=== PATIENT | female | born 1990 | race Hispanic/Latino ===

== ENCOUNTER 2016-09-05 17:17 | Emergency (ER) | payer OTHER ==
[~2016-09-05] VITALS: Ht 142.2 cm; Wt 43.1 kg
[~2016-09-05 17:17] MED LIST: DIFLUCAN150 MG PO; NAPROXEN500 MG PO; OMEPRAZOLE D/R20 MG PO; ZOFRAN4 M1 PO
--- NOTE | 2016-09-05 19:03 | ED GENERAL ADULT ---
History of Present Illness General Chief Complaint: NAUSEA/VOMITING UPPER ABDOMINAL PAIN Stated Complaint: +N +V AND RIB PAIN Source: patient Exam Limitations: no limitations Allergies Coded Allergies: codeine (Severe, N/V 10/08/15) Reconcile Medications Ketorolac Tromethamine 10 MG TABLET 1 TAB PO Q6P PRN pain Naproxen 500 MG TAB 1 TAB PO BID PAIN Omeprazole 20 MG ECC 1 CAP PO DAILY GERD Triage Note: 25 Y/O FEMALE C/O BILATERAL RIB PAIN. ALSO C/O N/V/D AND HEADACHE S/P FALL 1 YEAR AGO. ADVISED TO REMAIN NPO UNTIL EVAL. Triage Nurses Notes Reviewed? yes Onset: FOR TWO MONTHS OFF AND ON Duration: intermittent, waxing and waning Timing: TENDER WITH TOUCH BUT CURRENTLY NO PAIN Injury Environment: NO HISTORY OF TRAUMA Severity: CURRENTLY NO PAIN, TENDERNESS OVER THE RIBS ON THE RIGHT AND LEFT SIDES : No Patient currently breastfeeds: No HPI: Patient is a 25 year old lady who came to the ED due to tenderness over the lower ribs on both sides that has been coming and going for about two months, feels like 'as if somebody punched her there'. Denies any history of trauma. Patient complains of nausea and reports vomiting two times once this evening and once about two weeks ago, also states two episodes of dysphagia with liquids ( not solids) that happened twice over the past two weeks. She decided to come to the ED for evaluation of her chronic pain and discomfort. She does not regularly follow up with a PCP and has not seen a doctor for the pain. Patient has occasional pain in her stomach as well for which she takes antiacids. Also complains of headaches and takes Tylenol occasionally, currently reprots pain on the right and tempral sides. It is noteworthy that she recently noticed some bruising (thinks it is more than usual) on the lower extremities. (JEFF HART,[facility]) Vital Signs & Intake/Output Vital Signs & Intake/Output Vital Signs Date Time Temp Pulse Resp B/P Pulse O2 O2 Flow FiO2 Ox Delivery Rate 09/06 0114 97.8 70 16 106/73 100 Room Air 09/05 2342 98.0 78 18 109/61 100 Room Air 09/05 2058 Room Air 09/05 2029 97.4 68 16 113/65 100 Room Air ED Intake and Output 01/25 0000 09/05 1200 Intake Total Output Total Balance Patient 43.091 kg Weight Past History Travel History Traveled to [place] past 21 day No Medical History Any Pertinent Medical History? 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 No Sexual History Sexually Active Yes # of partners 1 (YARITZA AGUILAR MD) Review of Systems Review of Systems Constitutional: Denies: chills, diaphoresis, fever, malaise, weakness, unexplained weight loss. EENTM: Denies: blurred vision, visual changes, hearing changes. Respiratory: Denies: cough, hemoptysis, orthopnea, short of breath, sputum production, stridor, wheezing. Cardiovascular: Denies: chest pain, edema, orthopena, palpitations, peripheral edema, syncope. GI: Reports: abdominal pain, nausea (loose stool one time), changes in stool, vomiting. Denies: bloating, constipation, diarrhea, distention, bowel incontinence. Genitourinary: Denies: discharge, dysuria, frequency, hematuria, hesitation, nocturia, pain, urgency. Musculoskeletal: Denies: back pain, joint pain, joint swelling, muscle pain. Skin: Denies: change in skin color, change in hair/nails, lesions (reports a few bruises on LE). Neurological/Psychological: Reports: headache. Denies: anxiety, numbness, weakness. Hematologic/Endocrine: Reports: bruising. Denies: bleeding, polyuria, polydipsia. (YARITZA AGUILAR MD) Physical Exam Physical Exam General Appearance: well developed/nourished, no apparent distress, alert, awake , comfortable Head: atraumatic, normal appearance Eyes: Bilateral: normal appearance, PERRL, EOMI. Ears, Nose, Throat: normal pharynx, normal ENT inspection, hearing grossly normal Neck: normal inspection, supple, full range of motion Respiratory: normal breath sounds, chest non-tender, no respiratory distress, quiet respiration, lungs clear Cardiovascular: regular rate/rhythm Peripheral Pulses: 2+ radial (R), 2+ radial (L), 2+ dorsalis pedis (R), 2+ dorsalis pedis (L) Gastrointestinal: normal bowel sounds, soft, tenderness on deep palpation on right and left upper quadrants Back: normal inspection, normal range of motion Extremities: normal inspection, normal capillary refill, normal range of motion, no edema Neurologic/Psych: no motor/sensory deficits, awake, alert, oriented x 3, normal gait Core Measures ACS in differential dx? No CVA/TIA Diagnosis: No Severe Sepsis Present: No Septic Shock Present: No (YARITZA AGUILAR MD) Progress Differential Diagnoses I considered the following diagnoses in my evaluation of the patient: [ , cholecystitis, gastritis, pancreatitis] Diagnostic Imaging: Viewed by Me: CT Scan. Radiology Impression: no acute abnormality Initial ED EKG: none (YARITZA AGUILAR MD) Differential Diagnoses I considered the following diagnoses in my evaluation of the patient: Plan of Care: Orders Procedure Date/time Status URINALYSIS 09/05 2007 Complete LIPASE 09/05 2007 Complete HUMAN BETA HCG SCREEN 09/05 2007 Complete COMPREHENSIVE METABOLIC PANEL 09/05 2007 Complete CBC WITHOUT DIFFERENTIAL 09/05 2007 Complete Laboratory Tests 09/05/162034: Anion Gap 8, Estimated GFR > 60, BUN/Creatinine Ratio 14.3, Glucose 85, Calcium 9.3, Total Bilirubin 1.0, AST 22, ALT 30, Alkaline Phosphatase 68, Total Protein 7.2, Albumin 4.4, Globulin 2.8, Albumin/Globulin Ratio 1.6, Lipase 97, Total Beta HCG NEGATIVE, CBC w Diff NO MAN DIFF REQ, RBC 4.35, MCV 91.5, MCH 30.4, RDW 13.1, MPV 8.4, Gran % 54.5, Lymphocytes % 33.8, Monocytes % 6.0, Eosinophils % 4.8, Basophils % 0.9, Absolute Granulocytes 4.8, Absolute Lymphocytes 3.0, Absolute Monocytes 0.5, Absolute Eosinophils 0.4, Absolute Basophils 0.1, PUBS MCHC 33.2, Urine Color YEL, Urine Clarity HAZY H, Urine pH 7.0, Ur Specific [place] 1.020, Urine Protein NEG, Urine Ketones NEG, Urine Nitrite NEG, Urine Bilirubin NEG, Urine Urobilinogen 0.2, Ur Leukocyte Esterase TRACE H, Ur Microscopic SEDIMENT EXAMINED, Urine RBC 3-5, Urine WBC 5-10 H, Ur Epithelial Cells MOD H, Urine Mucus MOD H, Urine Hemoglobin NEG, Urine Glucose NEG Comments: 09/05/2016 11:12:03 PM I have updated TATY on her test results. She has declined any additional pain medication or nausea medicine at this time. I have notified her we are attempting to contact surgeon regarding this gallstone in the neck of her gallbladder. Patient evaluated by the surgical service and considered stable for outpatient management. (ARSEN HART,JOSEE Galvan) Departure Departure Disposition: HOME OR SELF CARE Condition: Stable Additional Instructions: please: 1. Follow up with Dr. Reyes, general surgeon, within a week of discharge 2. Come back to the ED if symptoms persist or worsen Departure Forms: Customer Survey General Discharge Information Prescriptions: Current Visit Scripts Ketorolac Tromethamine 1 TAB PO Q6P PRN pain #20 TAB (JEFF HART,[facility]) Departure Clinical Impression Primary Impression: Cholelithiasis Qualifiers: Cholelithiasis location: gallbladder Cholecystitis presence: without cholecystitis Biliary obstruction: without biliary obstruction Qualified Code: K80.20 - Calculus of gallbladder without cholecystitis without obstruction Ruled Out Impressions: Referrals: LUMA HART,[facility] Resident Co-Sign Statement Statement: ED Attending supervision documentation- [X] I saw and evaluated the patient. I have also reviewed all the pertinent lab results and diagnostic results. I agree with the findings and the plan of care as documented in the Resident's documentation. [] I have reviewed the ED Record and agree with the Resident's documentation. [] Additions or exceptions (if any) to the Resident's note and plan are summarized below: [] (ARSEN HART,JOSEE Galvan) Critical Care Note Critical Care Note Critical Care Time: 30-74 min (JOSEE LEGER MD) ED Attending Observation Initial Observation Note: I have seen and personally examined DENNIS OBRIEN on 09/06/16 at 0051. I agree with the current emergency department documentation. The disposition (admission or discharge) is uncertain at this time, she needs a period of observation for the following reason(s): The ED Nurse caring for this patient has been personally informed as to what the patient is being observed for. (YARITZA AGUILAR MD) (YARITZA AGUILAR MD)
[2016-09-05 20:42] LABS: ABSOLUTE BASOPHIL COUNT 0.1 /CUMM (0.0-0.2); ABSOLUTE EOSINOPHIL COUNT 0.4 /CUMM (0.0-0.7); ABSOLUTE GRANULOCYTE CT 4.8 /CUMM (1.4-6.5); ABSOLUTE MONOCYTE COUNT 0.5 /CUMM (0.10-0.60); BASOPHIL % 0.9 % (0.0-2.0); EOSINOPHIL % 4.8 % (0-5); GRANULOCYTE % 54.5 % (42.2-75.2); HEMATOCRIT 39.8 % (37-47); MEAN CORPUSCULAR HGB 30.4 PG (27.0-31.0); MEAN CORPUSCULAR HGB CONC 33.2 G/DL (33.0-37.0); MEAN CORPUSCULAR VOLUME 91.5 FL (81.0-99.0); MEAN PLATELET VOLUME 8.4 FL (7.4-10.4); PLATELET COUNT 228 /CUMM (130-400); RBC DISTRIBUTION WIDTH 13.1 % (11.5-14.5); RED BLOOD CELL CT 4.35 /CUMM (4.20-5.40); WHITE BLOOD CELL COUNT 8.8 /CUMM (4.8-10.8)
--- NOTE | 2016-09-05 22:11 | CT SCAN REPORT ---
EXAMINATION: CT ABDOMEN AND PELVIS WITH CONTRAST CLINICAL INFORMATION: Upper abdominal pain and nausea. COMPARISON: None. TECHNIQUE: Multidetector volumetric imaging was performed of the abdomen and pelvis before and after the IV administration of 80 mL of Optiray 320 intravenous contrast. Sagittal and coronal reformatted images were obtained on the technologist's workstation. DLP: 212 mGy-cm. FINDINGS: LUNG BASES: The visualized lung bases are unremarkable. LIVER, GALLBLADDER, AND BILIARY TREE: The liver is normal in size, shape, and attenuation. No focal hepatic lesion or biliary ductal dilatation is present. The gallbladder is mildly contracted. Of note, there is a 4 mm stone within the gallbladder neck. There are no secondary signs of acute cholecystitis. However, please note that ultrasound is more sensitive in evaluating for secondary signs of acute cholecystitis. PANCREAS: Unremarkable. SPLEEN: Unremarkable. ADRENAL GLANDS: Unremarkable. KIDNEYS AND URETERS: The kidneys are normal in size and enhance homogeneously, without focal lesions. There is no appreciable nephrolithiasis or hydroureteronephrosis of either kidney or renal collecting system. No ureteral stones are identified. BLADDER: Unremarkable. GASTROINTESTINAL TRACT: Normal anatomic orientation of the stomach relative to the duodenum. Normal caliber of abdominal and pelvic bowel loops, without evidence of obstruction or ileus. No circumferential bowel wall thickening with surrounding inflammatory changes to suggest an underlying infectious or inflammatory enterocolitis. Normal-appearing appendix within the right lower quadrant of the abdomen. No organizing intra-abdominal fluid collections or free intraperitoneal air. ABDOMINAL WALL: No significant hernia is appreciated. LYMPH NODES: No significant abdominal or pelvic adenopathy. VASCULAR: Patent abdominal vasculature. Normal course and caliber of the abdominal aorta and its branching vessels, without aneurysmal dilatation. PELVIC VISCERA: There is a rim-enhancing structure within the right ovary, favored to represent a crenulated corpus luteal cyst. There is minimal free pelvic fluid. The uterus is retroverted. OSSEOUS STRUCTURES: No acute osseous abnormality. Normal alignment of the imaged thoracolumbar spine. IMPRESSION: Cholelithiasis, with a 4 mm stone visualized in the region of the gallbladder neck. No visible secondary signs of acute cholecystitis. However, please note that right upper quadrant abdominal ultrasound is more sensitive in evaluating for secondary signs of acute cholecystitis. Consider correlation with abdominal ultrasound.
[2016-09-06] MEDS ORDERED: KETOROLAC TROME10 M1 PO (00:46)
--- NOTE | 2016-09-06 01:06 | Cons- General Surgery ---
ASIF BASILIO 09/06/16 0049: General Information and HPI Consulting Request Date of Consult: 09/06/16 Requested By: Dr. Lucas Reason for Consult: Abdominal pain, gallstone on CT abd Source of Information: patient, old records Exam Limitations: no limitations History of Present Illness: Patient is a 25yo F whom presented to [facility] ED with c/o abdominal pain with n/ v. Per patient her pain started a couple of months ago and comes and goes. She also has nausea associated with her pain. Her pain became more severe on her left flank this morning and she had 1 episode of emesis. She says it feels as if its under her ribs while pointing to her lateral left flank. Pain radiates around to the back. She states she has 'a little' discomfort in her right upper quadrant. She has been passing flatus and bowel habits have been normal. Denies fever or recent illnesses. Voiding without difficulty, denies dysuria. Denies any trauma or sports that could have caused the pain. 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 Cardiovascular: Denies: chest pain, palpitations. Respiratory: Denies: cough, short of breath. GI: Reports: see HPI. Genitourinary: Denies: dysuria, frequency, hematuria. Musculoskeletal: Reports: no symptoms. Skin: Reports: no symptoms. All Other Systems: Reviewed and Negative Exam & Diagnostic Data Vital Signs and I&O Vital Signs Date Time Temp Pulse Resp B/P Pulse O2 O2 Flow FiO2 Ox Delivery Rate 09/05 2342 98.0 78 18 109/61 100 Room Air 09/05 2058 Room Air 01/24 2030 97.4 68 16 113/65 100 Room Air 09/05 1721 98.2 106 18 127/87 99 Room Air Intake & Output 09/06 0800 09/06 0000 09/05 1600 09/05 0809/05 0000 09/04 1600 Intake Total Output Total Balance Patient 94 lb 15.99 oz Weight Physical Exam: General: NAD, comfortable, A&Ox3 Chest: CTAB. Heart S1S2 normal. Abdomen: soft, nondistended. Miller's sign negative. Mild epigastric TTP to deep palpation. Mild LUQ TTP. No guarding or signs of peritonitis. +TTP left flank with +CVA tenderness. No organomegaly or masses appreciated. +Bowel sounds x4 quadrants Ext: No calve swelling/TTP, neurovascularly intact bilateral lower extremities Last 24 Hours of Labs: Laboratory Tests 09/05 2034 Chemistry Sodium (137 - 145 mmol/L) 138 Potassium (3.5 - 5.1 mmol/L) 4.1 Chloride (98 - 107 mmol/L) 105 Carbon Dioxide (22 - 30 mmol/L) 25 Anion Gap (5 - 16) 8 BUN (7 - 17 mg/dL) 10 Creatinine (0.5 - 1.0 mg/dL) 0.7 Estimated GFR (>60 ml/min) > 60 BUN/Creatinine Ratio (7 - 25 %) 14.3 Glucose (65 - 99 mg/dL) 85 Calcium (8.4 - 10.2 mg/dL) 9.3 Total Bilirubin (0.2 - 1.3 mg/dL) 1.0 AST (14 - 36 U/L) 22 ALT (9 - 52 U/L) 30 Alkaline Phosphatase (<127 U/L) 68 Total Protein (6.3 - 8.2 g/dL) 7.2 Albumin (3.5 - 5.0 g/dL) 4.4 Globulin (1.9 - 4.2 gm/dL) 2.8 Albumin/Globulin Ratio (1.1 - 2.2 %) 1.6 Lipase (23 - 300 U/L) 97 Total Beta HCG (NEGATIVE) NEGATIVE Hematology CBC w Diff NO MAN DIFF REQ WBC (4.8 - 10.8 /CUMM) 8.8 RBC (4.20 - 5.40 /CUMM) 4.35 Hgb (12.0 - 16.0 G/DL) 13.2 Hct (37 - 47 %) 39.8 MCV (81.0 - 99.0 FL) 91.5 MCH (27.0 - 31.0 PG) 30.4 RDW (11.5 - 14.5 %) 13.1 Plt Count (130 - 400 /CUMM) 228 MPV (7.4 - 10.4 FL) 8.4 Gran % (42.2 - 75.2 %) 54.5 Lymphocytes % (20.5 - 51.1 %) 33.8 Monocytes % (1.7 - 9.3 %) 6.0 Eosinophils % (0 - 5 %) 4.8 Basophils % (0.0 - 2.0 %) 0.9 Absolute Granulocytes (1.4 - 6.5 /CUMM) 4.8 Absolute Lymphocytes (1.2 - 3.4 /CUMM) 3.0 Absolute Monocytes (0.10 - 0.60 /CUMM) 0.5 Absolute Eosinophils (0.0 - 0.7 /CUMM) 0.4 Absolute Basophils (0.0 - 0.2 /CUMM) 0.1 PUBS MCHC (33.0 - 37.0 G/DL) 33.2 Urines Urine Color (YEL,AMB,STR) YEL Urine Clarity (CLEAR) HAZY H Urine pH (5.0 - 8.0) 7.[address] (1.001 - 1.035) 1.020 Urine Protein (NEG,<30 MG/DL) NEG Urine Ketones (NEG) NEG Urine Nitrite (NEG) NEG Urine Bilirubin (NEG) NEG Urine Urobilinogen (0.1 - 1.0 EU/dl) 0.2 Ur Leukocyte Esterase (NEG) TRACE H Ur Microscopic SEDIMENT EXAMINED Urine RBC (0 - 5 /HPF) 3-5 Urine WBC (0 - 2 /HPF) 5-10 H Ur Epithelial Cells (NONE,FEW) MOD H Urine Mucus (FEW,NONE) MOD H Urine Hemoglobin (NEG) NEG Urine Glucose (N MG/DL) NEG Imaging Results: EXAM TYPE: CAT - CT ABD & PELVIS W IV CONTRAST EXAMINATION: CT ABDOMEN AND PELVIS WITH CONTRAST CLINICAL INFORMATION: Upper abdominal pain and nausea. COMPARISON: None. TECHNIQUE: Multidetector volumetric imaging was performed of the abdomen and pelvis before and after the IV administration of 80 mL of Optiray 320 intravenous contrast. Sagittal and coronal reformatted images were obtained on the technologist's workstation. DLP: 212 mGy-cm. FINDINGS: LUNG BASES: The visualized lung bases are unremarkable. LIVER, GALLBLADDER, AND BILIARY TREE: The liver is normal in size, shape, and attenuation. No focal hepatic lesion or biliary ductal dilatation is present. The gallbladder is mildly contracted. Of note, there is a 4 mm stone within the gallbladder neck. There are no secondary signs of acute cholecystitis. However, please note that ultrasound is more sensitive in evaluating for secondary signs of acute cholecystitis. PANCREAS: Unremarkable. SPLEEN: Unremarkable. ADRENAL GLANDS: Unremarkable. KIDNEYS AND URETERS: The kidneys are normal in size and enhance homogeneously, without focal lesions. There is no appreciable nephrolithiasis or hydroureteronephrosis of either kidney or renal collecting system. No ureteral stones are identified. BLADDER: Unremarkable. GASTROINTESTINAL TRACT: Normal anatomic orientation of the stomach relative to the duodenum. Normal caliber of abdominal and pelvic bowel loops, without evidence of obstruction or ileus. No circumferential bowel wall thickening with surrounding inflammatory changes to suggest an underlying infectious or inflammatory enterocolitis. Normal-appearing appendix within the right lower quadrant of the abdomen. No organizing intra-abdominal fluid collections or free intraperitoneal air. ABDOMINAL WALL: No significant hernia is appreciated. LYMPH NODES: No significant abdominal or pelvic adenopathy. VASCULAR: Patent abdominal vasculature. Normal course and caliber of the abdominal aorta and its branching vessels, without aneurysmal dilatation. PELVIC VISCERA: There is a rim-enhancing structure within the right ovary, favored to represent a crenulated corpus luteal cyst. There is minimal free pelvic fluid. The uterus is retroverted. OSSEOUS STRUCTURES: No acute osseous abnormality. Normal alignment of the imaged thoracolumbar spine. IMPRESSION: Cholelithiasis, with a 4 mm stone visualized in the region of the gallbladder neck. No visible secondary signs of acute cholecystitis. However, please note that right upper quadrant abdominal ultrasound is more sensitive in evaluating for secondary signs of acute cholecystitis. Consider correlation with abdominal ultrasound. Assessment/Plan Assessment/Plan 25yo F with mild abdominal pain and n/v and left flank pain. CT abdomen shows small gallstone at the neck of the gallbladder, however, she is not focally tender in her RUQ. Her LFTs and amylase and lipase are WNL. WBC WNL and afebrile. No evidence of acute cholecystitis. No surgical intervention at this time. Patient can follow up with Dr. Reyes as an outpatient to discuss removing her gallbladder at a later time if symptoms persist. Instruct to return to ED if symptoms worsen. Consult Acknowledgment - Thank you for your consult request. RAMIRO REYES MD 09/06/16 0823: Assessment/Plan Consult Acknowledgment - Thank you for your consult request. Attending MD Review Statement Attending Statement Attending MD Statement: discuss w/resident/PA/CLINICAL BUSINESS ANALYST, agreed w/resident/PA/CLINICAL BUSINESS ANALYST Attending Assessment/Plan: discussed with ED attending and Surgery PA possible early acute cholecystitis from small stone in neck of gallbladder although with the left sided pain and dirty urine may be a UTI or pyelo suggest formal ultrsound which could be done as outpt and followup with me for elective cholecystectomy
[2016-09-06 01:14] VITALS: BP 106/73
== END 2016-09-06 01:14 ==
LOC: ERH 17:17
PROVIDERS: Emergency Medicine
DX: K80.20 Calculus of gallbladder without cholecystitis without obstruction (principal)
CPT/HCPCS: 74177; 81001

== ENCOUNTER 2018-01-05 11:54 | Emergency (ER) | payer OTHER ==
[~2018-01-05] VITALS: Ht 142.2 cm; Wt 43.1 kg
[~2018-01-05 11:54] MED LIST changes: +BACLOFEN10 M1 PO; +IBUPROFEN600 M1 PO; +KETOROLAC TROME10 M1 PO; +ULTRAM50 M1 PO
[2018-01-05 12:00] VITALS: BP 135/88
--- NOTE | 2018-01-05 12:08 | ED GI/GU/ABDOMINAL COMPLAINT ---
History of Present Illness General Chief Complaint: General Adult Stated Complaint: PER PT "FOUND OUT IM WANT EVALUATION" Source: patient, old records Exam Limitations: no limitations Vital Signs & Intake/Output Vital Signs & Intake/Output Vital Signs Date Time Temp Pulse Resp B/P B/P Pulse O2 O2 Flow FiO2 Mean Ox Delivery Rate 01/05 1200 97.3 84 18 135/88 96 Room Air Allergies Coded Allergies: codeine (Severe, N/V 10/08/15) Reconcile Medications Baclofen 10 MG TABLET 1 TAB PO TIDPRN PRN muscle spasm/strain Ibuprofen 600 MG TABLET 1 TAB PO Q6P PRN pain with food Ketorolac Tromethamine 10 MG TABLET 1 TAB PO Q6P PRN pain Naproxen 500 MG TAB 1 TAB PO BID PAIN Omeprazole 20 MG ECC 1 CAP PO DAILY GERD Ondansetron (Zofran Odt) 4 MG TAB.RAPDIS 1 TAB SL TID PRN NAUSEA Tramadol HCl (Ultram) 50 MG TABLET 1-2 TAB PO Q6PRN PRN severe pain Triage Note: PT TO ER C/C N/V X 3 DAYS. PT HAD + HOME TEST X 2 TODAY. DENIES ABD PAIN OR D/C. Triage Nurses Notes Reviewed? yes LMP (ages 10-50): 10/28 ? y Is pt currently ? No Onset: Abrupt Duration: day(s): (3), constant Timing: recent history Quality/Severity: vomiting Severity Numbers: 4 Location: no pain Activities at Onset: none No Modifying Factors: none Associated Symptoms: denies HPI: 27-year-old female history of ovarian cyst presents complaining of nausea vomiting 3 days. She states her last menstrual cycle she believes was in October. She is normally regular every 30 days. She took 2 tests at home which are both positive today. She denies any abdominal pain and cramping, vaginal bleeding or discharge. No fever no chills. She denies any palpitations or her previous (Diogo Dumont) Past History Travel History Traveled to [place] past 21 day No Medical History Any Pertinent Medical History? 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 No (Diogo Dumont) Review of Systems Review of Systems Constitutional: Reports: no symptoms, see HPI. Comments Review of systems: See HPI, All other systems negative. Constitutional, no chills no fever, HEENT: no sore throat no congestion Cardiovascular: No chest pain Skin: no rashes, no change in skin Respiratory: No dyspnea no cough no sputum GI: nausea vomiting, : No dysuria No hematuria, no frequency Muscle skeletal: No joint pain, no back pain, no neck pain, Neurologic: , no headache Psych: No stress Heme/endocrine: No bruisin Immunology: No lymphadenopathy (Diogo Dumont) Physical Exam Physical Exam General Appearance: well developed/nourished, no apparent distress, alert, awake Gastrointestinal: soft Comments: Well-developed well-nourished person in no acute distress HEENT: Normal EENT exam; PERRL, EOMI, HEAD is atraumatic. moist mucous membranes. Neck: Supple, normal range of motion Back: Nontender, no CVA tenderness. Full range of motion Cardiovascular: Regular rate and rhythms no murmurs Respiratory: No respiratory distress. Patient speaking in full complete sentences. Breath sounds clear to auscultation bilaterally: NO W/R/R Abdomen: Soft, nontender nondistended, no appreciable organomegaly. Normal bowel sounds. No rebound/guarding, Extremity: No edema, full range of motion of extremities Neuro: Alert oriented x3, motor sensory normal, There were no obvious focal neurologic abnormalities. Skin: No appreciable rash on exposed skin, skin is warm and dry. Psych: Mood and affect is normal, memory and judgment is normal. Core Measures ACS in differential dx? No Sepsis Present: No Sepsis Focused Exam Completed? No (Diogo Dumont) Progress Differential Diagnosis: ectopic , intrauterine , threatened AB , UTI/pyelo Plan of Care: Orders Procedure Date/time Status URINE 01/06 1156 Complete URINALYSIS 01/05 115 Complete HUMAN BETA HCG TITRE 01/05 115 Complete COMPREHENSIVE METABOLIC PANEL 01/05 115 Complete CBC WITHOUT DIFFERENTIAL 01/05 1156 Complete Laboratory Tests 01/05/18 1305: Anion Gap 14, Estimated GFR > 60, BUN/Creatinine Ratio 8.3, Glucose 92, Calcium 9.6, Total Bilirubin 1.5 H, AST 23, ALT 32, Alkaline Phosphatase 71, Total Protein 7.7, Albumin 4.5, Globulin 3.2, Albumin/Globulin Ratio 1.4, Beta HCG, Quant 43261.0, CBC w Diff NO MAN DIFF REQ, RBC 4.44, MCV 92.5, MCH 30.9, MCHC 33.4, RDW 13.1, MPV 8.7, Gran % 83.6 H, Lymphocytes % 12.1 L, Monocytes % 3.7, Eosinophils % 0.3, Basophils % 0.3, Absolute Granulocytes 9.2 H, Absolute Lymphocytes 1.3, Absolute Monocytes 0.4, Absolute Eosinophils 0, Absolute Basophils 0 01/05/18 1242: Urinalysis MOD H, Urine Color YEL, Urine Clarity HAZY H, Urine pH 7.5, Ur Specific [place] 1.015, Urine Protein NEG, Urine Ketones 40 H, Urine Nitrite NEG, Urine Bilirubin NEG, Urine Urobilinogen 1.0, Ur Leukocyte Esterase NEG, Ur Microscopic SEDIMENT EXAMINED, Urine WBC RARE, Ur Epithelial Cells MANY H, Urine Mucus MOD H, Urine Hemoglobin NEG, Urine Glucose NEG, Urine Test POSITIVE Labs ordered IV fluids Zofran 4 mg IV ordered ultrasound ordered. Case discussed with Dr. tompkins agrees with plan 1415 ms Taylor is resting in no acute distress reports improvement in nausea with Zofran pending ultrasound discussed with her at length all of her labs. I D/w ms taylor her us results, case d/w dr tompkins who agrees with plan after eval. she is tolerating po challenge, she will f/u with her ob next week. advised zofran for nausea, return precautions were discussed att lenght. cleared for dc Diagnostic Imaging: Viewed by Me: Ultrasound. Discussed w/RAD: Ultrasound. Radiology Impression: PATIENT: DENNIS TAYLOR PRESENT AGE: 27 PATIENT ACCOUNT NO: [id number] : 89 LOCATION: [facility] ORDERING PHYSICIAN: Diogo PETERS SERVICE DATE: 01/05/18-0 EXAM TYPE: US - US TRANSVAG EXAMINATION: US , LESS THAN 14 WEEKS INDICATION : 27-year-old female with positive test, presented with abdominal pain. TECHNIQUE: Real-time ultrasound of was performed using both transabdominal as well as transvaginal approach, accessing grayscale appearance and color Doppler flow. COMPARISON: None FINDINGS: Multiple sonographic images of the pelvis demonstrates a single live intrauterine . A pole and the gestational sac is visualized. heart rate is also detected, the heart rate is 118 bpm. Yolk sac is visualized, measures 0.4 cm. The crown- rump length is 0.49 cm. This corresponds to a mean age of 6 weeks and 4 days with estimated and expected date of delivery on 08/27/2018. Both ovaries are of normal size. The right measures 4.5 x 2.3 x 2.7 cm. The left measures 3.0 x 1.1 x 1.8 cm. There is a 2.6 cm corpus luteal cyst in the left ovary. Normal arterial and venous blood flow is present bilaterally. There is no pelvic free fluid. IMPRESSION: 1. Single live intrauterine with mean age of 6 weeks and 4 days, with expected date of delivery 08/27/2018. Secondary to the early stage of , anatomy is difficult to evaluate and further measurements for a more comprehensive age estimate cannot be taken. Recommend returning for repeat ultrasound at approximately age 17-19 weeks. 2. No evidence of ectopic . DICTATED BY: Patricia Vazquez MD DATE/TIME DICTATED:1413 RNFA:SAMUEL DATE/TIME TRANSCRIBED:01/05/181413 CONFIDENTIAL, DO NOT COPY WITHOUT APPROPRIATE AUTHORIZATION. <Electronically signed in Other Vendor System> SIGNED BY: Patricia Vazquez MD 01/05/18 1429 Initial ED EKG: none (Diogo Dumont) Departure Departure Time of Disposition: 1435 Disposition: HOME OR SELF CARE Condition: Stable Clinical Impression Primary Impression: Normal IUP (intrauterine ) on ultrasound Secondary Impressions: Nausea & vomiting Referrals: Patient Has No Primary Care Dr (PCP/Family) Additional Instructions: FOLLOW UP WITH YOUR STRESS ANALYST ON SUNDAY. ZOFRAN FOR NAUSEA. BLAND DIET, CLEAR LIQUIDS. ADVANCE TOLERATED. TYLENOL FOR PAIN IF NEEDED. RETURN WITH ANY CONCERNS Departure Forms: Customer Survey General Discharge Information Prescriptions: Current Visit Scripts Ondansetron (Zofran Odt) 1 TAB SL TID PRN NAUSEA #15 TAB (Diogo Dumont) PA/HAND MEAT SALTER Co-Sign Statement Statement: ED Attending supervision documentation- [X] I saw and evaluated the patient. I have also reviewed all the pertinent lab results and diagnostic results. I agree with the findings and the plan of care as documented in the PA's/HAND MEAT SALTER's documentation. [] I have reviewed the ED Record and agree with the PA's/HAND MEAT SALTER's documentation. [] Additions or exceptions (if any) to the PAs/HAND MEAT SALTER's note and plan are summarized below: [] (Kameron Tompkins DO
[2018-01-05 13:32] LABS: ABSOLUTE BASOPHIL COUNT 0 /CUMM (0.0-0.2); ABSOLUTE EOSINOPHIL COUNT 0 /CUMM (0.0-0.7); ABSOLUTE GRANULOCYTE CT 9.2 /CUMM (1.4-6.5); ABSOLUTE LYMPH COUNT 1.3 /CUMM (1.2-3.4); ABSOLUTE MONOCYTE COUNT 0.4 /CUMM (0.10-0.60); BASOPHIL % 0.3 % (0.0-2.0); EOSINOPHIL % 0.3 % (0-5); HEMATOCRIT 41.1 % (37-47); MEAN CORPUSCULAR HGB 30.9 PG (27.0-31.0); MEAN CORPUSCULAR HGB CONC 33.4 G/DL (33.0-37.0); MEAN CORPUSCULAR VOLUME 92.5 FL (81.0-99.0); MEAN PLATELET VOLUME 8.7 FL (7.4-10.4); PLATELET COUNT 286 /CUMM (130-400); RBC DISTRIBUTION WIDTH 13.1 % (11.5-14.5); RED BLOOD CELL CT 4.44 /CUMM (4.20-5.40); WHITE BLOOD CELL COUNT 11.1 /CUMM (4.8-10.8)
[2018-01-05 13:47] LABS: GRANULOCYTE % 83.6 % (42.2-75.2)
--- NOTE | 2018-01-05 14:29 | ULTRASOUND REPORT ---
EXAMINATION: US , LESS THAN 14 WEEKS INDICATION: 27-year-old female with positive test, presented with abdominal pain. TECHNIQUE: Real-time ultrasound of was performed using both transabdominal as well as transvaginal approach, accessing grayscale appearance and color Doppler flow. COMPARISON: None FINDINGS: Multiple sonographic images of the pelvis demonstrates a single live intrauterine . A pole and the gestational sac is visualized. heart rate is also detected, the heart rate is 118 bpm. Yolk sac is visualized, measures 0.4 cm. The crown-rump length is 0.49 cm. This corresponds to a mean age of 6 weeks and 4 days with estimated and expected date of delivery on 08/27/2018. Both ovaries are of normal size. The right measures 4.5 x 2.3 x 2.7 cm. The left measures 3.0 x 1.1 x 1.8 cm. There is a 2.6 cm corpus luteal cyst in the left ovary. Normal arterial and venous blood flow is present bilaterally. There is no pelvic free fluid. IMPRESSION: 1. Single live intrauterine with mean age of 6 weeks and 4 days, with expected date of delivery 08/27/2018. Secondary to the early stage of , anatomy is difficult to evaluate and further measurements for a more comprehensive age estimate cannot be taken. Recommend returning for repeat ultrasound at approximately age 17-19 weeks. 2. No evidence of ectopic .
[2018-01-05] MEDS ORDERED: ZOFRAN ODT4 M1 SL (14:37)
== END 2018-01-05 14:46 ==
LOC: ERH 11:54
PROVIDERS: Physician Assistant Medical
DX: O21.9 Vomiting of pregnancy, unspecified (principal); Z3A.01 Less than 8 weeks gestation of pregnancy
CPT/HCPCS: 76817; 81001; 81025; 96361; 96374; J2405

== ENCOUNTER → 2018-01-25 | Day surgery (SDC) | payer OTHER ==
[~2018-01-25] MED LIST changes: +ZOFRAN ODT4 M1 SL
[2018-01-25 11:20] LABS: ABSOLUTE BASOPHIL COUNT 0 /CUMM (0.0-0.2); ABSOLUTE EOSINOPHIL COUNT 0.2 /CUMM (0.0-0.7); ABSOLUTE GRANULOCYTE CT 7.1 /CUMM (1.4-6.5); ABSOLUTE LYMPH COUNT 1.3 /CUMM (1.2-3.4); ABSOLUTE MONOCYTE COUNT 0.4 /CUMM (0.10-0.60); BASOPHIL % 0.2 % (0.0-2.0); EOSINOPHIL % 1.8 % (0-5); GRANULOCYTE % 79.3 % (42.2-75.2); HEMATOCRIT 36.8 % (37-47); MEAN CORPUSCULAR HGB 31.6 PG (27.0-31.0); MEAN CORPUSCULAR HGB CONC 34.6 G/DL (33.0-37.0); MEAN CORPUSCULAR VOLUME 91.4 FL (81.0-99.0); MEAN PLATELET VOLUME 8.3 FL (7.4-10.4); PLATELET COUNT 270 /CUMM (130-400); RBC DISTRIBUTION WIDTH 12.8 % (11.5-14.5); RED BLOOD CELL CT 4.03 /CUMM (4.20-5.40)
--- NOTE | 2018-01-25 14:40 | Operative Report ---
Operative/Inv Procedure Report Surgery Date: 01/25/18 Name of Procedure: Suction curretage Pre-Operative Diagnosis: Missed Post-Operative Diagnosis: Same Estimated Blood Loss: less than 50ml Surgeon/Sheet Metal Layout Mechanic: Laith Brooks MD Anesthesia: moderate sedation, paracervical block Monitors: Per Anesthesiology IV Fluids: 400 cc Urine Output: 50 cc Drains: NA Specimens: products of conception Microbiology: NA Complications: None Condition: Stable to RR Operative Indication: 27 year old Parous female who was found at 9 weeks gestation to have a missed . patient had reported that preceeding this she noted her breast pain resolved and her nausea reduced. Ultrasound performed in office showed embyro with no detectable heart rate when previous at 7 weeks she had heart rate. Consent for surgery obtained with risks of pain bleeding infection uterine injury and potential increase in PTB rate reviewed. Operative/Procedure Note Note: Patient was taken to OR and prepped in usual sterile fashion Time out was done prior to procedure. Secondary to patient having emesis 30 minutes after taking her prophylactic doxycycline she was given 500 mg IV Flagyl. Patient was placed in dorsal lithotomy position and ALps were placed for vte risk reduction. Vagina and perineum prepped. Bladder catheterized of 50 cc clear urine Speculum placed in vagina and bierer tenaculum placed on anterior lip of cervix. Lidocaine 1% 10 cc injected into paracervical space. Cervix was serially dilated with Juan dilators to 25 tunisian. Minimal resistance noted given her use of misoprostol in the am. [address] in cavity and using suction at 60 mm of HG the uterus was cleared of products of conception. using the same plastic currette a curretage was done until gritty texture noted. Speculum and tenaculum removed and instrument and lap count correct times two. Assessment of the POC shows villi and decidua. Tolerated well and was taken out of lithotomy and transferred to in stable condition. Postop she was seen in the SDS area and postoperative expectations and instructions provided and documented in her chart. Informed that after next menses may resume efforts for conception and to continue her folic acid. Findings: Retroflexed gravid uterus 9 cm No vulvar nor vaginal lesions Cervix without lesion. Discharge Disposition: Same Day Admissions Additional Comments: NA CC: Laith Brooks MD
== END ==
LOC: STS 02:59
PROVIDERS: Obstetrics & Gynecology
DX: O02.1 Missed abortion (principal); E28.2 Polycystic ovarian syndrome; F17.200 Nicotine dependence, unspecified, uncomplicated
CPT/HCPCS: 36415; 88261; J2001; J2250